=== PATIENT | male | born 1975 | race African-American/Black ===

== ENCOUNTER → 2025-10-25 10:32 | Outpatient (CLI) | payer OTHER, SELFPAY ==
--- NOTE | 2025-10-25 10:33 | DI.RAD.S_ITS ---
PROCEDURE: XR KNEE LT 3V INDICATIONS: Left knee pain - L I TECHNIQUE: 3 views of the knee were acquired. COMPARISON: None. FINDINGS: Bones: No fractures or dislocations. No suspicious bony lesions. Soft tissues: No joint effusion. No suspicious soft tissue calcifications. IMPRESSION: No acute bony abnormality or significant effusion. Dictated by: Daniel Roberts M.D. on 10/25/2025 at 9:57 Approved by: Daniel Roberts M.D. on 10/25/2025 at 9:57
== END ==
PROVIDERS: Referring Provider Registered Nurse; Visit Provider Registered Nurse
DX: M25.562 Pain in left knee (principal)
CPT/HCPCS: 73562